=== PATIENT | male | born 1995 | race Caucasian/White ===

== ENCOUNTER 2016-10-19 16:22 | Emergency (ER) | payer SELFPAY ==
[~2016-10-19] VITALS: Ht 177.8 cm; Wt 81.2 kg
[2016-10-19 16:29] VITALS: BP 124/61
== END 2016-10-19 17:57 | disposition left against medical advice (07) ==
LOC: ED 16:22
DX: Z53.21 Procedure and treatment not carried out due to patient leaving prior to being seen by health care provider (principal)